=== PATIENT | male | born 1960 | race Caucasian/White ===

== ENCOUNTER 2016-11-08 01:16 | Emergency (ER) | payer BC ==
[~2016-11-08] VITALS: Ht 174 cm; Wt 92.7 kg
[~2016-11-08 01:16] MED LIST: ASPEC81 PO; INSULIN SQ; LISI20TA3 PO; LRS10 PO; MCR25 PO; METO50TA16 PO; METR0.754 TOP
[2016-11-08 01:25] VITALS: TEMP 37.1; Ht 174 cm; Wt 92.7 kg
[2016-11-08] MEDS ORDERED: ATOR-24 PO (01:52)
[2016-11-08] MEDS ORDERED: ASPI81TA28 PO (01:52)
[2016-11-08] MEDS ORDERED: LISI-526 PO (01:52)
[2016-11-08] MEDS ORDERED: MULT-506 PO (01:52)
[2016-11-08] MEDS ORDERED: GLIP5TAB3 PO (01:53)
[2016-11-08] MEDS ORDERED: BACL10TA PO (01:53)
[2016-11-08] MEDS ORDERED: GLC/500 PO (01:53)
[2016-11-08] MEDS ORDERED: INSDGI SC (01:53)
[2016-11-08] MEDS ORDERED: HYDROmorphone INJ 1 MG/ML SYR IV STA (02:07)
--- NOTE | 2016-11-08 02:13 | EMERGENCY ROOM VISIT NOTE ---
History Report prepared by Maxwell: Rojelio Stark Under the Supervision of: Dr. Khurram Amador M.D. First contact with patient: 02:00 Chief Complaint: NECK PAIN Stated Complaint: SEVERE PAIN, RT SIDE OF NECK History of Present Illness The patient is a 56 year old male who presents to the Emergency Room with complaints of worsening right sided neck pain starting around 1200 today. The patient states that he has had neck pain for the past few years, though today it has been worse. He states that additionally he had a sharp pain in his left neck around 1200, and he had burning in his left arm. The patient states that he was not lifting anything earlier, and this pain has been shooting into his arms. He has a history of diabetes, and he states that his sugars have been under control. He states that he is on metformin and Lantus. He denies any weakness in his legs. Source of History: patient Onset: 1200 Position: neck (right) Quality: burning, sharp Timing: worsening Note: Associated symptoms: Left arm pain Review of Systems See HPI for pertinent positives & negatives. A total of 10 systems reviewed and were otherwise negative. Family History Diabetes mellitus Social History Smoking Status: Never Smoker Marital Status: Housing Status: lives with family Occupation Status: employed Current/Historical Medications Scheduled Aspirin (Aspirin Ec), 81 MG PO DAILY Atorvastatin (Lipitor), 40 MG PO DAILY Baclofen (Lioresal), 10 MG PO Q8 Glipizide (Glucotrol), 5 MG PO DAILY Insulin Glargine (Lantus), 13 UNITS SC QPM Lisinopril (Prinivil), 30 MG PO DAILY Metformin Hcl (Glucophage), 500 MG PO BID Metoprolol Tartrate (Lopressor) (Lopressor), 50 MG PO BID Multivitamin (Multivitamin), 1 TAB PO DAILY Scheduled PRN Cyclobenzaprine Hcl (Flexeril), 10 MG PO TID PRN for Muscle Spasms Oxycodone Ir (Roxicodone Ir), 1-2 TAB PO Q4H PRN for Severe Pain Allergies Coded Allergies: No Known Allergies (Unverified , 11/08/16) Physical Exam Vital Signs Date Time Temp Pulse Resp B/P Pulse Ox O2 Delivery O2 Flow Rate FiO2 11/08/16 03:50 71 18 131/63 95 11/08/16 02:46 105 18 114/62 93 Nasal Cannula 2.0 11/08/16 01:25 37.1 95 20 143/66 96 Room Air Physical Exam GENERAL: Patient is uncomfortable appearing and in moderate distress. HEENT: Spasm of the right lateral neck muscles. No acute trauma, normocephalic atraumatic, mucous membranes moist, no nasal congestion, no scleral icterus. NECK: No stridor, no adenopathy, no meningismus, trachea is midline. LUNGS: No dyspnea. Clear to auscultation and equal bilaterally. No wheeze, no rhonchi. HEART: Regular rate and rhythm. No murmurs, rubs, gallops appreciated. ABDOMEN: Soft, nontender, bowel sounds positive, no masses appreciated, no peritonitis. BACK: No midline tenderness, no CVA tenderness EXTREMITIES: Normal motion all extremities, no cyanosis, no edema. NEUROLOGIC: Alert and oriented, no acute motor or sensory deficits, no focal weakness, cranial nerves grossly intact. SKIN: No rash, no jaundice, no diaphoresis. Medical Decision & Procedures ER Provider Diagnostic Interpretation: X ray results are stated below per my interpretation: Chest: 1 view: No infiltrate, no effusion, normal cardiac border. 3 View Neck: Mild straightening. No fracture. No dislocation. Laboratory Results 11/08/16 02:30 Red Blood Count 4.72, Mean Corpuscular Volume 86.2, Mean Corpuscular Hemoglobin 30.5, Mean Corpuscular Hemoglobin Concent 35.4, Mean Platelet Volume 10.5, Neutrophils (%) (Auto) 86.3, Lymphocytes (%) (Auto) 6.3, Monocytes (%) (Auto) 6.6, Eosinophils (%) (Auto) 0.3, Basophils (%) (Auto) 0.2, Neutrophils # (Auto) 10.00, Lymphocytes # (Auto) 0.73, Monocytes # (Auto) 0.77, Eosinophils # (Auto) 0.04, Basophils # (Auto) 0.02 11/08/16 02:30 Test 11/08/16 02:30 White Blood Count 11.59 K/uL (4.8-10.8) Red Blood Count 4.72 M/uL (4.7-6.1) Hemoglobin 14.4 g/dL (14.0-18.0) Hematocrit 40.7 % (42-52) Mean Corpuscular Volume 86.2 fL (80-100) Mean Corpuscular Hemoglobin 30.5 pg (25-34) Mean Corpuscular Hemoglobin Concent 35.4 g/dl (32-36) Platelet Count 194 K/uL (130-400) Mean Platelet Volume 10.5 fL (7.4-10.4) Neutrophils (%) (Auto) 86.3 % Lymphocytes (%) (Auto) 6.3 % Monocytes (%) (Auto) 6.6 % Eosinophils (%) (Auto) 0.3 % Basophils (%) (Auto) 0.2 % Neutrophils # (Auto) 10.00 K/uL (1.4-6.5) Lymphocytes # (Auto) 0.73 K/uL (1.2-3.4) Monocytes # (Auto) 0.77 K/uL (0.11-0.59) Eosinophils # (Auto) 0.04 K/uL (0-0.5) Basophils # (Auto) 0.02 K/uL (0-0.2) RDW Standard Deviation 41.0 fL (36.4-46.3) RDW Coefficient of Variation 13.0 % (11.5-14.5) Immature Granulocyte % (Auto) 0.3 % Immature Granulocyte # (Auto) 0.03 K/uL (0.00-0.02) Anion Gap 8.0 mmol/L (3-11) Est Creatinine Clear Calc Drug Dose 85.6 ml/min Estimated GFR () 87.7 Estimated GFR (Non- 75.7 BUN/Creatinine Ratio 27.0 (10-20) Calcium Level 8.6 mg/dl (8.5-10.1) Troponin I < 0.015 ng/ml (0-0.045) Laboratory results as reviewed by me. Medications Administered Medications (Trade) Dose Ordered Sig/Augustina Route Start Time Stop Time Status Last Admin Dose Admin Hydromorphone HCl (Dilaudid Inj) 1 mg NOW STAT IV 11/08/16 02:07 11/08/16 02:09 DC 11/08/16 02:45 1 MG ECG Indication: other (neck pain) Rate (beats per minute): 98 Rhythm: normal sinus Findings: no acute ischemic change, no ectopy ED Course 0200: The patient was evaluated in room B8. A complete history and physical exam was performed. 0207: Dilaudid Inj 1mg IV 0322: Reevaluated the patient, and he feels much better. Discussed results and discharge instructions: He verbalized understanding and agreement. The patient is ready for discharge. 0330: Flexeril 10mg 1 Homepack, Oxycodone HCl 1 Homepack PO Medical Decision 56 yr old male with long history of neck/back problems who arrives with worsening pain. Admits waxing/waning over last few weeks and following with PCP. Currently with some radicular symptoms right shoulder with no neuro deficits. Admits earlier in day left shoulder discomfort when pain was radiating across back. EKG unremarkable, Trop negative and with 6+ hours I do not feel this is ACS. Symptoms not consistent with dissection and with unremarkable CXR I would hold on CTA (did discuss this with patient and with shared decision making he and agree holding off cts). Feeling vastly improved with pain meds. Hold on steroids given brittle diabetic issues and patient wishes to avoid them given issues in past. Thus will do narcotics with knowledge of their risks and restrictions along with flexeril. Discussed symptoms requiring return. I do not feel that his symptoms consistent with dissection as no risk factor for this nor symptoms of such. and pt comfortable with discharge. Follow up with PCP. Impression Primary Impression: Muscle spasms of neck Scribe Attestation The scribe's documentation has been prepared under my direction and personally reviewed by me in its entirety. I confirm that the note above accurately reflects all work, treatment, procedures, and medical decision making performed by me. Departure Information Dispostion Home / Self-Care Prescriptions Cyclobenzaprine Hcl (FLEXERIL) 10 Mg Tab 10 MG PO TID Y for Muscle Spasms, #21 TAB Prov: Khurram Amador M.D. 11/08/16 Oxycodone Ir (Roxicodone Ir) 5 Mg Tab 1-2 TAB PO Q4H Y for Severe Pain, #15 TAB Prov: Khurram Amador M.D. 11/08/16 Referrals Dari Flores C.R.N.P. (PCP) Forms HOME CARE DOCUMENTATION FORM, IMPORTANT VISIT INFORMATION, WORK / SCHOOL INSTRUCTIONS Patient Instructions ED Spasm Neck No Injury, My [facility] Additional Instructions You have received a narcotic pain medication prescription. These medications may cause drowsiness and should not be used with other sedative medications. Do not drive, drink alcohol, perform dangerous activities, nor make important decisions after taking these medications. cma or lpn use or inappropriate use may lead to addiction.
[2016-11-08 02:40] LABS: BASO % 0.2 %; BASO ABS # 0.02 K/uL (0-0.2); COMPLETE YES; EOS % 0.3 %; HEMATOCRIT 40.7 % (42-52); IG% 0.3 %; LYMPH % 6.3 %; LYMPH ABS # 0.73 K/uL (1.2-3.4); MEAN CELL VOLUME 86.2 fL (80-100); MEAN CORPUSCULAR HEMOGLOBIN 30.5 pg (25-34); MEAN CORPUSCULAR HGB CONC 35.4 g/dl (32-36); MEAN PLATELET VOLUME 10.5 fL (7.4-10.4); MONO % 6.6 %; NEUT % 86.3 %; PLATELET COUNT 194 K/uL (130-400); RED BLOOD COUNT 4.72 M/uL (4.7-6.1); WHITE BLOOD COUNT 11.59 K/uL (4.8-10.8)
[2016-11-08 03:01] LABS: BLOOD UREA NITROGEN 30 mg/dl (7-18); CALCIUM 8.6 mg/dl (8.5-10.1); CARBON DIOXIDE 26 mmol/L (21-32); CHLORIDE 105 mmol/L (98-107); GLUCOSE 254 mg/dl (70-99); POTASSIUM 4.4 mmol/L (3.5-5.1); SODIUM 139 mmol/L (136-145)
[2016-11-08] MEDS ORDERED: CYCL10TA6 PO (03:24)
[2016-11-08] MEDS ORDERED: OXYC1TAB3 PO (03:24)
[2016-11-08] MEDS ORDERED: FLEXERIL HOME PACK 10 MG VIAL PO ONE (03:30)
[2016-11-08] MEDS ORDERED: OXYCODONE IR HOME PACK PO ONE (03:30)
[2016-11-08 03:50] VITALS: BP 131/63; PULSE 71; O2SAT 95
--- NOTE | 2016-11-08 08:11 | DIAGNOSTIC IMAGING REPORT ---
CHEST 1 VW FRONT-NOT PORTABLE HISTORY: Right-sided Chest Pain COMPARISON: Chest 02/26/2009. FINDINGS: Low lung volumes. The heart is normal in size. No pleural effusions. No pneumothorax. There is a diffusely elevated interstitium without focal consolidation to suggest pneumonia. No evidence for pulmonary edema. IMPRESSION: Low lung volumes with slight prominence of interstitial markings. However, no acute process within the chest. Electronically signed by: Devin Helton M.D. 11/08/2016 8:09 AM Dictated Date/Time: 11/08/2016 8:08 AM
--- NOTE | 2016-11-08 08:12 | DIAGNOSTIC IMAGING REPORT ---
CERVICAL SPINE 3 VIEWS HISTORY: neck pain, right sided COMPARISON: None. FINDINGS: The cervical spine is visualized from C1 through the superior endplate of T1. There is no fracture. No subluxation. Disc spaces are preserved. Prevertebral soft tissues and the atlantodens interval are intact. IMPRESSION: No fracture or subluxation within the cervical spine. Electronically signed by: Devin Helton M.D. 11/08/2016 8:10 AM Dictated Date/Time: 11/08/2016 8:09 AM
== END 2016-11-08 03:51 | disposition home or self-care (01) ==
LOC: C.EDB 01:18
DX: M62.838 Other muscle spasm (principal); Z83.3 Family history of diabetes mellitus; Z79.82 Long term (current) use of aspirin